=== PATIENT | male | born 1955 | race Caucasian/White ===

== ENCOUNTER 2017-11-26 20:27 | Emergency (ER) | payer BC ==
[2017-11-26 20:43] VITALS: BP 109/70
[2017-11-26] MEDS ORDERED: Fluorescein Sod TOPICAL 0.6* 0.6 MG TEST OPHTHALMIC ONE (21:15)
[2017-11-26] MEDS ORDERED: BSS OPTH.SOL* BTL OPHTHALMIC ONE (21:15)
[2017-11-26] MEDS ORDERED: Tetracaine 0.5% OPTH.SOL 4 ML* 1 DROP BTL ONE (21:20)
--- NOTE | 2017-11-26 21:21 | UC ---
Eye Complaint HPI - HPI Summary HPI Summary: Got fb in right eye today while cleaning out gutters at home, wash eye several times has continued discomfort noticed a white raised area at 3pm next to cornea - History of Current Complaint Chief Complaint: UCEye Stated Complaint: FB IN EYE Time Seen by Provider: 11/26/17 21:15 Hx Obtained From: Patient Onset/Duration: Sudden Onset Timing: Constant Pain Intensity: 6 Pain Scale Used: 0-10 Numeric Location of Injury: Sclera - at 3oomedial to cornea Character: Foreign Body Sensation Aggravating Factor(s): Nothing Alleviating Factor(s): Nothing Associated Signs And Symptoms: Negative: Vision Impairment Right, Vision Impairment Left - Allergies/Home Medications Allergies/Adverse Reactions: Allergies Allergy/AdvReac Type Severity Reaction Status Date / Time bees Allergy anaphylaxis Uncoded 11/26/17 20:37 wasps Allergy analphylaxi Uncoded 11/26/17 20:37 s Home Medications: Home Medications NK [No Home Medications Reported] 11/26/17 [History Confirmed 11/26/17] PMH/Surg Hx/FS Hx/Imm Hx Previously Healthy: Yes - Surgical History Surgical History: Yes Surgery Procedure, Year, and Place: RT KNEE MENISCUS SURGERY AT [facility] [place]. KIDNEY STONE REMOVAL AT [facility] [place]. BONE TAKEN OUT OF LEFT KNEE 04/2015. eye muscle surgey in 20's. l3-5hemilaminectomy 2016 - Family History Known Family History: Positive: None - denies heart disease or dm - Social History Occupation: Works From/At Home Lives: Alone Alcohol Use: Daily Substance Use Type: None Smoking Status (MU): Never Smoked Tobacco Review of Systems Constitutional: Negative Skin: Negative Eyes: Eye Redness - right possible fb/possible abrasion ENT: Negative Respiratory: Negative Cardiovascular: Negative Gastrointestinal: Negative Genitourinary: Negative Motor: Negative Neurovascular: Negative Musculoskeletal: Negative Neurological: Negative Psychological: Negative Is Patient Immunocompromised?: No All Other Systems Reviewed And Are Negative: Yes Physical Exam Triage Information Reviewed: Yes Appearance: Well-Appearing, No Pain Distress, Well-Nourished Vital Signs: Initial Vital Signs Temp 98.2 F 11/26/17 20:38 Pulse 88 11/26/17 20:38 Resp 18 11/26/17 20:38 BP 109/70 11/26/17 20:38 Pulse Ox 95 11/26/17 20:38 Vital Signs Reviewed: Yes Eye Exam: Normal Eyes: Positive: Conjunctiva Inflamed - right, Other: - perrla, no visual c/o, eomi ENT Exam: Normal ENT: Positive: Normal ENT inspection, Hearing grossly normal. Negative: Trismus , Muffled voice, Hoarse voice, Dental tenderness, Sinus tenderness Dental Exam: Normal Neck exam: Normal Neck: Positive: Supple, Nontender Respiratory Exam: Normal Respiratory: Positive: Chest non-tender, No respiratory distress, No accessory muscle use Cardiovascular Exam: Normal Cardiovascular: Positive: Pulses Normal, Brisk Capillary Refill Musculoskeletal Exam: Normal Musculoskeletal: Positive: Strength Intact, ROM Intact, No Edema Neurological Exam: Normal Neurological: Positive: Alert Psychological Exam: Normal Skin Exam: Normal UC Physical Exam Vital Signs On Initial Exam: Initial Vitals Temp Pulse Resp BP Pulse Ox 98.2 F 88 18 109/70 95 11/26/17 20:38 11/26/17 20:38 11/26/17 20:38 11/26/17 20:38 11/26/17 20:38 Procedures - Eye Procedure Antibiotic Ointment/Drps Admin: right eye Re-Evaluation - Re-Evaluation First Eval Change: Unchanged - 2x3 mm scalera abrasion at 3:00 near cornea Eye Complaint Course/Dx - Course Course Of Treatment: polytrim dropps, ibuprofen follow with Dr. Meza first thing in the morning - Differential Dx/Diagnosis Provider Diagnoses: OD Scaleral abrasion Discharge - Sign-Out/Discharge Documenting (check all that apply): Discharge/Admit/Transfer - Discharge Plan Condition: Stable Disposition: HOME Patient Education Materials: Ibuprofen (By mouth), Corneal Abrasion (ED), How to Use Eye Drops (ED), Eye Foreign Body (ED) Referrals: Mathew Meza MD [Medical Doctor] - 1 Day - Billing Disposition and Condition Condition: STABLE Disposition: HOME
[2017-11-26] MEDS ORDERED: Polymyx/Trimethoprim OPTH* 10 ML BTL RIGHT EYE ONE (21:33)
== END 2017-11-26 21:45 | disposition home or self-care (01) ==
LOC: UCEAST 20:27
DX: S05.01XA Injury of conjunctiva and corneal abrasion without foreign body, right eye, initial encounter (principal); X58.XXXA Exposure to other specified factors, initial encounter; Y93.H3 Activity, building and construction; Y92.008 Other place in unspecified non-institutional (private) residence as the place of occurrence of the external cause; Z91.030 Bee allergy status
CPT/HCPCS: 99212; A9270-GY; G0463